=== PATIENT | male | born 1970 | race Caucasian/White ===

== ENCOUNTER 2018-01-28 16:10 | Emergency (ER) | payer SELFPAY ==
[~2018-01-28] VITALS: Ht 182.9 cm; Wt 76.2 kg
[2018-01-28 16:10] VITALS: BP_SYST 159
[2018-01-28 16:20] VITALS: BP_SYST 159
== END 2018-01-28 16:20 ==
LOC: SED 16:10
DX: Z02.89 Encounter for other administrative examinations (principal)
CPT/HCPCS: 99283